=== PATIENT | female | born 1930 | race Hispanic/Latino ===

== ENCOUNTER 2017-03-31 06:03 | Day surgery (SDC) | payer MEDICARE ==
[2015-11-04 11:14] VITALS: PULSE 82
[2017-03-04 06:36] VITALS: BMI 32.9
[2017-03-31] MEDS ORDERED: Lidocaine 2% Inj (20ml) ONE (06:54)
[2017-03-31 07:04] LABS: INR 1.11 (0.93-1.08); PARTIAL THROMBOPLASTIN TIME 28.6 Seconds (23.7-30.8)
[2017-03-31 07:05] LABS: BASO # 0.03 K/mm3 (0.0-2.0); BASO % 0.3 % (0.0-3.0); EOS # 0.1 (0.0-0.7); GRAN # 6.93 (1.4-6.5); GRAN % 69.2 % (50.0-68.0); HEMATOCRIT 39.3 % (36.0-48.0); LYMPH # 2.2 (1.2-3.4); LYMPH % 21.9 % (22.0-35.0); MEAN CELL VOLUME 95.4 fl (80.0-105.0); MEAN CORPUSCULAR HEMOGLOBIN 31.1 pg (25.0-35.0); MEAN CORPUSCULAR HGB CONC 32.6 g/dl (31.0-37.0); MEAN PLATELET VOLUME 10.9 fl (7.0-11.0); MONO # 0.8 (0.1-0.6); MONO % 7.6 % (1.0-6.0); RED CELL DISTRIBUTION WIDTH 14.2 % (11.5-14.5)
[2017-03-31 07:06] LABS: CALCIUM 9.7 mg/dL (8.4-10.5); POTASSIUM 3.1 mmol/L (3.6-5.0)
[2017-03-31] MEDS ORDERED: Midazolam 2 MG/2 ML VIAL ONE (07:21)
[2017-03-31] MEDS ORDERED: Potassium Chloride 20 mEq ER Tab PO ONE ×4 (07:33→13:10)
[2017-03-31 07:42] VITALS: RESP 18
--- NOTE | 2017-03-31 08:48 | HP ---
REASON FOR ADMISSION: Left and right heart cath, possible angioplasty and abnormal stress test. BRIEF CLINICAL HISTORY: This is an 86-year-old female with a past medical history significant for arrhythmia, hypothyroidism, COPD, atrial flutter and had abnormal stress test. The patient is scheduled for elective cardiac catheterization 3 weeks ago, but since the patient has a flu, it was canceled. Later on, the patient is rescheduled tomorrow for cardiac catheterization because of abnormal stress test. PAST MEDICAL HISTORY: Significant for hypothyroidism, hypertension, atrial flutter and atrial fibrillation. SOCIAL HISTORY: The patient denies any history of alcohol abuse. CURRENT MEDICATIONS: Coumadin 3 mg three times a week and 2 mg four times a week, verapamil 240 mg daily, levothyroxine and chondroitin sulfate, Lasix and erythromycin. ALLERGIES: ALLERGIC TO CIPRO, PRADAXA AND PENICILLIN. PREVIOUS CARDIAC WORKUP: As follows: The patient had a stress test dated 01/26/2017 that shows normal wall motion, ejection fraction 87% and partially reversible anteroseptal defect suspicious for ischemia. When compared from previous 12/05/2014, these defect appear new and again anteroseptal ischemia and ejection fraction 65%. The patient has echocardiography with ejection fraction 72%, moderate aortic regurgitation, mild mitral regurgitation, trace pulmonary insufficiency, mitral annular calcification and aortic systolic pressure of 62 consistent with moderate pulmonary hypertension. REVIEW OF SYSTEMS: As per HPI. PHYSICAL EXAMINATION: VITAL SIGNS: Height of the patient is 5 feet 2 inches, weight of the patient is 180, body mass index 33 kg/m2. Temperature afebrile, heart rate 80 and blood pressure 146/84. HEENT: PERRLA, intact. NECK: Supple. No carotid bruit or thyromegaly. CHEST: Clear to auscultation. HEART: S1 and S2, regular. ABDOMEN: Soft. EXTREMITIES: Clubbing and cyanosis negative. LABORATORY DATA: Blood workup pending. IMPRESSION: Abnormal stress test, anteroseptal reversible ischemia, mild aortic regurgitation and mitral regurgitation and pulmonary hypertension. RECOMMENDATIONS: Further recommendation will depend upon findings of cardiac catheterization. The patient has history of atrial fibrillation, off Coumadin for 5 days, hypothyroidism and hypertension. Thank you Dr. Yee for providing the opportunity in taking care of the patient, Vonnie Tejada. Kavin Walsh MD
[2017-03-31] MEDS ORDERED: Sodium Chloride 0.9% 1,000 ML IV SCH (09:00)
[2017-03-31 09:25] VITALS: TEMP 97.9
--- NOTE | 2017-03-31 11:01 | CARD ---
APPROVED REPORT EKG Measurement Heart [id number] <Conclusion> Poor Quality EKG.Marked sinus bradycardia/2:1 Block? Left axis deviation Abnormal ECG
[2017-03-31 12:24] VITALS: BP 128/63; PULSE 48; O2SAT 94
--- NOTE | 2017-03-31 18:23 | CARD ---
APPROVED REPORT Procedure(s) performed: Complete Heart Catheterization HISTORY The patient is a 86 year-old female with a history of : most recent EF: 66%. (EF Method: RADIONUCLIDE), previous CHF, chronic lung disease, Hx of pulmonary HTN. INDICATION The indication(s) include : positive stress test, chest pain, atrial fibrillation, dyspnea. CASE TECHNIQUE The patient was brought electively to the Cardiac Catheterization Laboratory in a fasting state and was prepped and draped in a sterile manner. The right femoral groin was infiltrated with 2% Lidocaine subcutaneous anesthesia. A sheath was inserted into the right femoral artery without difficulty. Coronary angiography was performed using coronary diagnostic catheters. The left coronary system was accessed and visualized with a Diagnostic ,3.5 JL 5 Fr catheter. The right coronary system was accessed and visualized with a Diagnostic ,3.5 JR 5 FR catheter. The left ventricle was accessed and visualized with a pig tail catheter catheter. Left ventricular/Aortic Valve gradient assessed on pullback. Left ventriculogram was performed in [place] projection. A Right Heart Catheterization was performed with a 7 Fr. [place] catheter and pressure were recorded. A 7 sheath was inserted into the right femoral vein without difficulty. Coronary angiography was performed using coronary diagnostic catheters. Cardiac outputs were obtained by the Thermal Dilution method. Pre-demployment femoral angiogram was performed . Closure device was deployed with a 6 Fr Angioseal in both Arterial and Venous Access site without any complications. The patient tolerated the procedure well and there were no complications associated with the procedure. Vessel Analysis The patient's coronary anatomy is right dominant. The left main coronary artery is a large size vessel with diffuse calcification noted throughout this vessel and without significant stenosis. The left main trifurcates to the left anterior descending, circumflex, and ramus. The left anterior descending artery is a medium size vessel with diffuse calcification noted throughout this vessel and without significant stenosis. The first diagonal branch is a small size vessel with diffuse calcification noted throughout this vessel and without significant stenosis. The second diagonal branch is a small size vessel with diffuse calcification noted throughout this vessel and without significant stenosis. The circumflex artery is a medium size vessel with diffuse calcification noted throughout this vessel and without significant stenosis. The first obtuse marginal branch is a small size vessel with diffuse calcification noted throughout this vessel and without significant stenosis. There is a 55% stenosis in the ostial segment. The ramus intermedius artery is a medium size vessel with diffuse calcification noted throughout this vessel and without significant stenosis. The right coronary artery is a large size vessel with diffuse calcification noted throughout this vessel and without significant stenosis. The right posterior descending artery is a large size vessel with diffuse calcification noted throughout this vessel and without significant stenosis. The right posterolateral branch is a medium size vessel with diffuse calcification noted throughout this vessel and without significant stenosis. Left Ventricle The left ventricle is normal in size with normal contractility. There was no cardiomyopathy. The left ventricular ejection fraction is estimated to be 60-65%. The left ventricular end diastolic pressure is 15-16 mmHg. There was no gradient across the aortic valve upon pullback. Right Heart Cath Findings The Right Atrial Pressure is 12 mmHg. The Right Ventricular Pressure is 44/10 mmHg. The Pulmonary Artery Pressure is 44/17 mmHg. with a mean of27 The Pulmonary Catheter Wedge Pressure is 20 mmHg. PVR 2.62 Wood units. The cardiac output and index were assessed using thermo dilution. The Cardiac Output is 2.67 L/min. The Cardiac index is 1.46 L/min/m2. 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 preserved lvFX.EF-60-65%,EDP-15-16 mmof Hg. Mild Pulmonary HTN PAF on Coumadin Recommendations Aggressive Medical TherapyCardiac Risk Reduction Program Weight Loss Reduction Program Monitor closely for Need of PPM ( pt was in A Fib with Slow VR). Resume Coumadin today, PT/INR on Tuesday with Dr. Yee CC; DRs. Yee / Amelie/ Jame.
== END 2017-03-31 14:20 | disposition home or self-care (01) ==
LOC: CATH 06:03
PROVIDERS: ATTEND Internal Medicine Cardiovascular Disease
DX: I25.10 Atherosclerotic heart disease of native coronary artery without angina pectoris (principal); J44.9 Chronic obstructive pulmonary disease, unspecified; I48.92 Unspecified atrial flutter; E03.9 Hypothyroidism, unspecified; I49.9 Cardiac arrhythmia, unspecified; R94.39 Abnormal result of other cardiovascular function study; I10 Essential (primary) hypertension; I48.91 Unspecified atrial fibrillation; Z88.1 Allergy status to other antibiotic agents; Z88.0 Allergy status to penicillin; Z88.8 Allergy status to other drugs, medicaments and biological substances; I08.0 Rheumatic disorders of both mitral and aortic valves; I27.20 Pulmonary hypertension, unspecified
CPT/HCPCS: 36415; 80048; 80061; 85025; 85610; 85730; 86850; 86900; 93005; 93460; 99152; C1769; C1887 ×2; C1894; C2629; J1644; J2250; J3010; J7040 ×2; Q9967

== ENCOUNTER 2017-10-30 18:59 | Emergency (ER) | payer MEDICARE ==
[2017-10-30 18:59] VITALS: PULSE 82
[2017-10-30 19:24] VITALS: BMI 35.2
[2017-10-30 19:28] VITALS: RESP 18; TEMP 97.7
[2017-10-30 19:44] VITALS: O2SAT 100
[2017-10-30] MEDS ORDERED: Albuterol-Ipratrop 3 mg / 0.5 (3 ml) UD ONE (19:50)
[2017-10-30] MEDS ORDERED: Albuterol-Ipratrop 3 mg / 0.5 (3 ml) UD INH STA (20:07)
--- NOTE | 2017-10-30 20:08 | ED PDOC ---
Arrival/HPI - General Chief Complaint: Shortness Of Breath Time Seen by Provider: 10/30/17 20:03 Historian: Patient - History of Present Illness Narrative History of Present Illness (Text): 10/30/17 20:08 87 year old female, whose past medical history includes asthma, COPD, A-fib on Coudadin, pulmonary hypertension, and hypothyroidism, presents to the emergency department complaining of sore throat and congestion. Patient notes also experiencing chest heaviness and wheezing, all symptoms for 2 days. Patient reports she went to Urgent Care yesterday and had Chest X-ray performed , which showed to be negative. Was told she was in normal state of health and was sent home instructed rest. Patient was prescribed Cepacol for throat. Patient arrives here to the ER for worsening symptoms, as well as shortness of breath and mild productive coughing. Patient notes no other complaints at this time. PMD: Dr. Willem eYe Past Medical History - Provider Review Nursing Documentation Reviewed: Yes - Infectious Disease Hx of Infectious Diseases: None - Tetanus Immunization Tetanus Immunization: Unknown - Cardiac Hx Atrial Fibrillation: Yes Hx Pacemaker: No - Pulmonary Hx Respiratory Disorders: Yes Hx Chronic Obstructive Pulmonary Disease (COPD): Yes Other/Comment: 10/29/17 URI - Neurological Hx Paralysis: No - HEENT Hx HEENT Disorder: No - Renal Hx Renal Disorder: No - Endocrine/Metabolic Hx Hypothyroidism: Yes - Hematological/Oncological Hx Blood Transfusions: No Hx Blood Transfusion Reaction: No - Integumentary Hx Dermatological Disorder: No - Musculoskeletal/Rheumatological Hx Musculoskeletal Disorders: Yes (HERNIATED DISCS- YRS AGO) - Gastrointestinal Hx Gastrointestinal Disorders: (poor appetite) - Genitourinary/Gynecological Hx Incontinence: Yes (stress) Hx Urinary Tract Infection: Yes - Psychiatric Hx Emotional Abuse: No Hx Physical Abuse: No Hx Substance Use: No - Past Surgical History Past Surgical History: No Previous - Surgical History Hx Cardiac Catheterization: No Hx Cholecystectomy: Yes Hx Coronary Stent: No - Anesthesia Hx Anesthesia Reactions: No Hx Malignant Hyperthermia: No - Suicidal Assessment Feels Threatened In Home Enviroment: No Family/Social History - Physician Review Nursing Documentation Reviewed: Yes Family/Social History: No Known Family HX Smoking Status: Former Smoker Hx Alcohol Use: No Hx Substance Use: No Hx Substance Use Treatment: No Allergies/Home Meds Allergies/Adverse Reactions: Allergies ciprofloxacin Allergy (Unknown, Verified 10/30/17 19:34) RASH dabigatran etexilate [From Pradaxa] Allergy (Unknown, Verified 10/30/17 19:34) BLEEDING Penicillins Allergy (Unknown, Verified 10/30/17 19:34) RASH Home Medications: Home Meds Medication Instructions Recorded Confirmed Albuterol Sulfate [Proair Hfa] 0.09 mg IH DAILY PRN 11/09/13 10/30/17 Arformoterol [Brovana] 1 regine IH BID 11/09/13 10/30/17 Furosemide [Lasix] 40 mg PO DAILY 07/20/14 10/30/17 Warfarin [Coumadin] 2 mg PO Q4XW 07/20/14 10/30/17 Atenolol [Tenormin] 12.5 mg PO QAM 12/05/14 10/30/17 Budesonide 0.25 mg IH BID 01/12/17 10/30/17 Cholecalciferol [Vitamin D 1000 IU] 2,000 iu PO DAILY 01/12/17 10/30/17 Cyanocobalamin [Vitamin B12] 500 mcg PO DAILY 01/12/17 10/30/17 Glucosam/Chond/Hyalu/Cf Borate 1 tab PO DAILY 01/12/17 10/30/17 [Move Free Joint Health Tablet] Levothyroxine Sodium [Levoxyl] 100 mcg PO QAM 01/12/17 10/30/17 Verapamil HCl [Verapamil ER] 240 mg PO QPM 01/12/17 10/30/17 Warfarin [Coumadin] 3 mg PO Q3XW 03/04/17 10/30/17 Review of Systems - Physician Review All systems were reviewed & negative as marked: Yes - Review of Systems ENT: Sore Throat, Sinus Congestion Respiratory: SOB, Cough (mild productive cough), Wheezing Cardiovascular: Other (chest heaviness) Physical Exam Vital Signs Reviewed: Yes Vital Signs Temp Pulse Resp BP Pulse Ox 10/30/17 19:42 100 10/30/17 19:28 97.7 F 60 18 160/70 H Temperature: Afebrile Blood Pressure: Hypertensive Pulse: Regular Respiratory Rate: Normal Appearance: Positive for: Well-Appearing Pain Distress: None Mental Status: Positive for: Alert and Oriented X 3 - Systems Exam Respiratory/Chest: Present: Wheezes (bilaterally) Cardiovascular: Present: Regular Rate and Rhythm, Normal S1, S2. No: Murmurs Abdomen: No: Tenderness, Distention, Peritoneal Signs Upper Extremity: Present: Normal Inspection. No: Cyanosis, Edema Lower Extremity: Present: Normal Inspection. No: Edema (no pitting edema) Neurological: Present: GCS=15, CN II-XII Intact, Speech Normal Skin: Present: Warm, Dry, Normal Color. No: Rashes Psychiatric: Present: Alert, Oriented x 3, Normal Insight, Normal Concentration Medical Decision Making ED Course and Treatment: 10/30/17 20:14 Impression: 87 year old female with shortness of breath, mild productive cough, sore throat, congestion, wheezing, and chest heaviness. Physical exam shows wheezing bilaterally. Plan: -- EKG -- Labs -- SOLU-Medrol -- Duoneb -- Reassess and disposition Progress Notes: 10/30/17 22:42 Chest X-ray reviewed, shows some interstitial disease, no acute infiltrates, and some hyperinflation. 10/30/17 22:44 On re-evaluation, patient feels better and is in no acute distress. I have discussed the results and plan with the patient, who expresses understanding. Patient in agreement with plan to be discharged home. Patient is stable for discharge. Patient was instructed to follow up with physician or return if symptoms worsen or new concerning symptoms arise. - Lab Interpretations Lab Results: 10/30/17 21:55 10/30/17 21:55 Lab Results 10/30/17 21:55: Sodium 146, Potassium 3.4 L, Chloride 103, Carbon Dioxide 26, Anion Gap 20, BUN 13, Creatinine 1.1, Est GFR ( Amer) 57, Est GFR (Non- Af Amer) 47, Random Glucose 147 H, Calcium 9.6, Magnesium 1.4 L, Total Bilirubin 0.8, AST 25, ALT 24, Alkaline Phosphatase 89, Lactate Dehydrogenase 437, Total Creatine Kinase 98, Troponin I < 0.01, Total Protein 7.3, Albumin 4.2 , Globulin 3.1, Albumin/Globulin Ratio 1.4 10/30/17 21:55: PT 35.3 H, INR 3.03 H, APTT 44.8 H 10/30/17 21:55: WBC 16.7 H D, RBC 4.76, Hgb 14.6, Hct 43.9, MCV 92.2, MCH 30.7, MCHC 33.3, RDW 14.4, Plt Count 199, MPV 11.2 H, Gran % 88.7 H, Lymph % (Auto) 6.0 L, [place] % (Auto) 5.0, Eos % (Auto) 0.2 L, Baso % (Auto) 0.1, Gran # 14.81 H , Lymph # (Auto) 1.0 L, [place] # (Auto) 0.8 H, Eos # (Auto) 0.0, Baso # (Auto) 0.01 10/30/17 21:10: Urine Color Yellow, Urine Appearance Sl cloudy, Urine pH 6.0, Ur Specific [place] >= 1.030, Urine Protein 100 H, Urine Glucose (UA) Negative, Urine Ketones 15 H, Urine Blood Trace-intact H, Urine Nitrate Negative, Urine Bilirubin Negative, Urine Urobilinogen 0.2, Ur Leukocyte Esterase Trace H, Urine RBC 0 - 2, Urine WBC 2 - 5, Ur Epithelial Cells 1 - 3 I have reviewed the lab results: Yes - RAD Interpretation Radiology Orders: 10/30/17 20:04 CHEST PORTABLE [RAD] Stat Talent Management Manager: ED Physician - EKG Interpretation Interpreted by ED Physician: Yes Type: 12 lead EKG - Medication Orders Current Medication Orders: Discontinued Medications Acetaminophen (Tylenol 325mg Tab) 650 mg PO STAT STA Stop: 10/30/17 21:48 Last Admin: 10/30/17 22:14 Dose: 650 mg MAR Pain/Vitals Document 10/30/17 22:14 (Rec: 10/30/17 22:15 [id number]) Pain Reassessment Is This A Pain ReAssessment? Yes Location Pain Location Body Steel Roller Description Throbbing Albuterol/Ipratropium (Duoneb 3 Mg/0.5 Mg (3 Ml) Ud) 3 ml INH Q15M STA Stop: 10/30/17 20:08 Last Admin: 10/30/17 21:11 Dose: 3 ml Azithromycin (Zithromax 500mg In Ns) 500 mg in 250 mls @ 0 mls/hr IVPB STAT STA ; Per Protocol PRN Reason: Protocol Stop: 10/30/17 20:38 Last Admin: 10/30/17 21:12 Dose: 500 mls/hr eMAR Start Stop Document 10/30/17 21:12 RG (Rec: 10/30/17 21:13 RG [facility] [id number]) Intravenous Solution Start Date 10/30/17 Start Time 21:12 Methylprednisolone (Solu-Medrol) 125 mg IVP STAT STA Stop: 10/30/17 20:07 Last Admin: 10/30/17 20:15 Dose: 125 mg IVP Administration Document 10/30/17 20:15 RG (Rec: 10/30/17 21:11 RG [facility] [id number]) Charges for Administration # of IVP Administrations 1 Potassium Chloride (K-Dur 20 Meq Er Tab) 40 meq PO STAT STA Stop: 10/30/17 22:33 - Scribe Statement The provider has reviewed the documentation as recorded by the Shady Bailey Provider Scribe Attestation: All medical record entries made by the Scribe were at my direction and personally dictated by me. I have reviewed the chart and agree that the record accurately reflects my personal performance of the history, physical exam, medical decision making, and the department course for this patient. I have also personally directed, reviewed, and agree with the discharge instructions and disposition. Disposition/Present on Arrival - Present on Arrival Any Indicators Present on Arrival: Yes History of DVT/PE: No History of Uncontrolled Diabetes: No Urinary Catheter: No History of Decub. Ulcer: No History Surgical Site Infection Following: None - Disposition Have Diagnosis and Disposition been Completed?: Yes Diagnosis: Asthma exacerbation in COPD Disposition: HOME/ ROUTINE Disposition Time: 22:52 Patient Problems: Current Active Problems Problem Status Onset Asthma exacerbation in COPD Acute Condition: GOOD Discharge Instructions (ExitCare): Asthma, Adult (DC), Exacerbation of COPD Additional Instructions: Follow up with your pcp in a few days and take zithromax as directed and continue your albuterol treatment. Prescriptions: Azithromycin [Zithromax] 250 mg PO DAILY 4 Days #4 tab Referrals: Willem Yee MD [Primary Care Provider] - Follow up with primary Forms: [employer] ([place])
[2017-10-30] MEDS ORDERED: Azithromycin 500MG/NS 250ml 500 MG/250 ML BAG IVPB STA (20:37)
[2017-10-30 21:17] LABS: URINE APPEARANCE SL CLOUDY (CLEAR); URINE BILIRUBIN NEGATIVE (NEGATIVE); URINE BLOOD TRACE-INTACT (NEGATIVE); URINE COLOR YELLOW (YELLOW); URINE GLUCOSE (UA) NEGATIVE (NEGATIVE); URINE LEUKOCYTE ESTERASE TRACE Leu/uL (NEGATIVE); URINE PROTEIN 100 mg/dL (<30 mg/dL); URINE UROBILINOGEN 0.2 E.U./dL (<1 E.U./dL)
[2017-10-30 21:27] LABS: URINE RBC 0 - 2 /hpf (0-2)
[2017-10-30 22:15] LABS: BASO # 0.01 K/mm3 (0.0-2.0); BASO % 0.1 % (0.0-3.0); EOS % 0.2 % (1.5-5.0); GRAN # 14.81 (1.4-6.5); GRAN % 88.7 % (50.0-68.0); HEMOGLOBIN 14.6 g/dL (12.0-16.0); MEAN CELL VOLUME 92.2 fl (80.0-105.0); MEAN CORPUSCULAR HEMOGLOBIN 30.7 pg (25.0-35.0); MEAN CORPUSCULAR HGB CONC 33.3 g/dl (31.0-37.0); MEAN PLATELET VOLUME 11.2 fl (7.0-11.0); MONO # 0.8 (0.1-0.6); RBC 4.76 10^6/uL (3.5-6.1); RED CELL DISTRIBUTION WIDTH 14.4 % (11.5-14.5); WHITE BLOOD COUNT 16.7 10^3/ul (4.5-11.0)
[2017-10-30 22:24] LABS: INR 3.03 (0.93-1.08); PARTIAL THROMBOPLASTIN TIME 44.8 Seconds (25.1-36.5); PROTHROMBIN TIME 35.3 SECONDS (9.4-12.5)
[2017-10-30 22:26] LABS: ALB/GLOB RATIO 1.4 (1.1-1.8); ALBUMIN 4.2 g/dL (3.0-4.8); ALT/SGPT 24 U/L (7-56); AST/SGOT 25 U/L (14-36); BLOOD UREA NITROGEN 13 mg/dL (7-21); CALCIUM 9.6 mg/dL (8.4-10.5); GFR AFRICAN-AMERICAN 57; GFR NON-AFRICAN AMERICAN 47
[2017-10-30] MEDS ORDERED: Potassium Chloride 20 mEq ER Tab PO STA (22:32)
[2017-10-30 22:37] LABS: TROPONIN I < 0.01 ng/mL
[2017-10-31 01:12] VITALS: BP 154/67; PULSE 66
--- NOTE | 2017-10-31 08:44 | CARD ---
APPROVED REPORT EKG Measurement Heart [id number] <Conclusion> Sinus bradycardia with short MI PRWP LAHB NSSTW changes
--- NOTE | 2017-10-31 09:11 | RAD ---
HISTORY: chest heaviness COMPARISON: 07/28/2017 FINDINGS: LUNGS: No active pulmonary disease. PLEURA: No significant pleural effusion identified, no pneumothorax apparent. CARDIOVASCULAR: Normal. OSSEOUS STRUCTURES: No significant abnormalities. VISUALIZED UPPER ABDOMEN: Normal. OTHER FINDINGS: None. IMPRESSION: No active disease.
== END 2017-10-30 23:17 | disposition home or self-care (01) ==
LOC: ED 18:59
DX: J44.9 Chronic obstructive pulmonary disease, unspecified (principal); J45.901 Unspecified asthma with (acute) exacerbation
CPT/HCPCS: 71045; 80053; 81001; 82550; 83615; 83735; 84484; 85025; 85610; 85730; 87086; 93005; 96374; 99284; J0456; J2930

== ENCOUNTER 2018-07-06 11:03 | Outpatient (CLI) | payer MEDICARE | END 2018-07-06 11:04 | disposition home or self-care (01) | LOC: LAB 11:03 ==

== ENCOUNTER 2018-07-12 11:48 | Outpatient (CLI) | payer MEDICARE | END 2018-07-12 11:49 | disposition home or self-care (01) | LOC: LAB 11:48 ==

== ENCOUNTER 2018-08-08 13:06 | Outpatient (CLI) | payer MEDICARE | END 2018-08-08 13:07 | disposition home or self-care (01) | LOC: LAB 13:06 ==

== ENCOUNTER 2018-10-04 11:43 | Outpatient (CLI) | payer MEDICARE | END 2018-10-04 11:44 | disposition home or self-care (01) | LOC: LAB 11:43 ==

== ENCOUNTER 2018-10-16 11:42 | Outpatient (CLI) | payer MEDICARE | END 2018-10-16 11:43 | disposition home or self-care (01) | LOC: LAB 11:42 ==

== ENCOUNTER 2018-11-09 10:23 | Outpatient (CLI) | payer MEDICARE | END 2018-11-09 10:24 | disposition home or self-care (01) | LOC: LAB 10:23 ==